=== PATIENT | male | born 1965 | race Hispanic/Latino ===

== ENCOUNTER 2018-03-01 11:45 | Day surgery (SDC) | payer BC ==
[2018-03-01 12:23] LABS: POTASSIUM 4.2 mmol/L (3.6-5.2)
[2018-03-01 12:25] LABS: PLATELET COUNT 268 K/uL (142-355)
== END 2018-03-01 14:56 | disposition home or self-care (01) ==
LOC: OR 11:45
PROVIDERS: Internal Medicine Gastroenterology
PROC: 0DBM8ZZ Excision of Descending Colon, Via Natural or Artificial Opening Endoscopic (ICD-10-PCS; principal; 2018-03-01)
DX: D12.4 Benign neoplasm of descending colon (principal); K64.8 Other hemorrhoids; Z12.89 Encounter for screening for malignant neoplasm of other sites
CPT/HCPCS: 80053; 85027; J2001; J2250; J2704; J3010

== ENCOUNTER 2021-02-13 08:44 | Outpatient (CLI) | payer BC | END 2021-02-13 22:39 | disposition home or self-care (01) | LOC: RAD 08:44 | PROVIDERS: ATTEND Internal Medicine | DX: I10 Essential (primary) hypertension (principal) ==